=== PATIENT | male | born 1995 | race Caucasian/White ===

== ENCOUNTER 2018-01-12 23:49 | Emergency (ER) | payer OTHER ==
[~2018-01-12] VITALS: Ht 170.2 cm; Wt 68.0 kg
[2018-01-13] MEDS ORDERED: QUET100T PO (00:07)
[2018-01-13] MEDS ORDERED: LORAZEPAM 0.5 MG TABLET PO ONE (00:15)
[2018-01-13] MEDS ORDERED: LORAZEPAM 0.5 MG TABLET ONE (00:21)
--- NOTE | 2018-01-13 01:30 | NUR ---
Patient discharged to home in stable conditon. Written and verbal after care instructions given. Patient verbalizes understanding of instructions. Patient able to ambulate unassisted with steady gait. Patient left with all personal belongings.
[2018-01-13 01:32] VITALS: BP 165/96
== END 2018-01-13 01:33 | disposition home or self-care (01) ==
LOC: ER 23:55
DX: F29 Unspecified psychosis not due to a substance or known physiological condition (principal); F15.10 Other stimulant abuse, uncomplicated; F32.9 Major depressive disorder, single episode, unspecified; Z88.0 Allergy status to penicillin; Z88.8 Allergy status to other drugs, medicaments and biological substances; F17.210 Nicotine dependence, cigarettes, uncomplicated; F12.10 Cannabis abuse, uncomplicated; Z79.899 Other long term (current) drug therapy
CPT/HCPCS: 99284; A4663

== ENCOUNTER 2018-02-07 22:25 | Emergency (ER) | payer OTHER ==
[~2018-02-07] VITALS: Ht 170.2 cm; Wt 68.0 kg
[~2018-02-07 22:25] MED LIST: QUET100T PO
[2018-02-07] MEDS ORDERED: LORAZEPAM 0.5 MG TABLET PO ONE (23:00)
[2018-02-07] MEDS ORDERED: LORAZEPAM 1 MG TABLET ONE (23:10)
--- NOTE | 2018-02-07 23:10 | NUR ---
Walked into patient room. Patient refused to take ativan as ordered. Patient walked out of ER with signing [facility]CI or taking medication that was ordered for him. Dr Hull aware
== END 2018-02-07 23:16 | disposition left against medical advice (07) ==
LOC: ER 22:26
DX: F15.10 Other stimulant abuse, uncomplicated (principal); F41.9 Anxiety disorder, unspecified; F32.9 Major depressive disorder, single episode, unspecified; F17.210 Nicotine dependence, cigarettes, uncomplicated; F12.10 Cannabis abuse, uncomplicated; Z88.0 Allergy status to penicillin; Z88.8 Allergy status to other drugs, medicaments and biological substances; Z79.899 Other long term (current) drug therapy
CPT/HCPCS: A4663